=== PATIENT | female | born 1995 | race Caucasian/White ===

== ENCOUNTER 2018-10-04 01:01 | Emergency (ER) | payer OTHER | END 2018-10-04 01:42 | disposition home or self-care (01) | LOC: JER 01:01 ==

== ENCOUNTER 2019-01-23 13:38 | Emergency (ER) | payer OTHER ==
[2019-01-23] MEDS ORDERED: ACETAMINOPHEN 325 MG TABLET (FP) PO ONE (13:46)
[2019-01-23] MEDS ORDERED: DIPHTH,PERTUSS(ACELL),TET 0.5 ML DISP.SYRIN IM ONE ×2 (13:47→13:57)
[2019-01-23] MEDS ORDERED: ACETAMINOPHEN 500 MG TABLET (FP) PO ONE (13:47)
[2019-01-23] MEDS ORDERED: ACETAMINOPHEN 500 MG TABLET (FP) ONE (13:49)
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
[2019-01-23 13:55] VITALS: TEMP 98.6; BMI 34.3
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
[2019-01-23 14:14] VITALS: BP 129/86; PULSE 105
== END 2019-01-23 14:15 | disposition home or self-care (01) ==
LOC: FER 13:38
PROC: 2W2EX4Z Dressing of Right Hand using Bandage (ICD-10-PCS; principal; 2019-01-23)
PROC: 3E0234Z Introduction of Serum, Toxoid and Vaccine into Muscle, Percutaneous Approach (ICD-10-PCS; 2019-01-23)
DX: T23.202A Burn of second degree of left hand, unspecified site, initial encounter (principal); T23.232A Burn of second degree of multiple left fingers (nail), not including thumb, initial encounter; X19.XXXA Contact with other heat and hot substances, initial encounter; Y93.89 Activity, other specified; Y92.9 Unspecified place or not applicable
CPT/HCPCS: 90715; 99282-25

== ENCOUNTER 2019-01-25 15:47 | Emergency (ER) | payer OTHER ==
[2019-01-25 16:03] VITALS: BP 121/73; PULSE 74; TEMP 98.3; BMI 28.3
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
== END 2019-01-25 16:29 | disposition home or self-care (01) ==
LOC: FER 15:47
DX: Z48.00 Encounter for change or removal of nonsurgical wound dressing (principal)
CPT/HCPCS: 99281-25